=== PATIENT | female | born 1945 | race Caucasian/White ===

== ENCOUNTER 2025-08-23 12:22 | Emergency (ER) | payer MEDICARE, OTHER, SELFPAY ==
[2025-08-23 12:25] VITALS: BP 136/60
--- NOTE | 2025-08-23 13:07 | ED.GENMED ---
History of Present Illness
General
Chief Complaint: Abdominal Symptoms
Time Seen by Provider: 08/23/25 12:50
History of Present Illness
History of Present Illness:
79-year-old female presents to the emergency department for evaluation of generalized weakness and increasing abdominal pain as well as inability to tolerate p.o. She began having diarrhea just over 2 weeks ago and ultimately was diagnosed with C.
difficile by stool specimen yesterday. Was started on oral vancomycin and metronidazole by her primary care physician. She is having difficulty eating and drinking and reports voluminous nonbloody diarrhea. Reports general fatigue. No nausea or
vomiting. C. difficile was most likely provoked by course of antibiotics for an oral infection that was given within 1 month of the onset of diarrhea
Review of Systems
Review of Systems
Allergies reviewed?: Yes
All Other Systems: ROS reviewed and negative except as documented in HPI and ROS
Phy Exam
Physical Exam
Physical Exam:
GEN: Well appearing, NAD, WDWN
HEENT: Oral mucosa moist, no scleral icterus
Cardiac: Regular rate
Lung: No respiratory distress, no tachypnea
Abdomen: Mildly protuberant, severely tender to palpation particular the upper abdomen, no rigidity
MSK: No gross deformity or injuries
Skin: Good color, no pallor or jaundice, no rashes
Neuro: AO x3, moves all extremities freely
Psych: Calm, cooperative
Course
Orders/Labs/Results
Orders:
Orders
08/23/25 12:51
Lactated Ringers [Lr] 1,000 ml IV BOLUS
08/23/25 13:07
CT Abd/Pel (IV only)-DH only Urgent
Comment:
Reason For Exam: diffuse abd pain/ known CDIFF
08/23/25 13:14
Complete Blood Count/With Diff Urgent
08/23/25 13:15
Comprehensive Metabolic Panel Urgent
08/23/25 14:43
Lactated Ringers [Lr] 1,000 ml IV BOLUS
Potassium Chloride [KCl] 40 meq PO NOW STA
Abnormal Lab Results
08/23/25 08/23/25
13:14 13:15
WBC 17.7 H 10^3/uL
(4.8-10.8)
MCHC 32.8 L g/dL
(33.0-37.0)
Abs Immat Gran (auto) 0.1 H 10^3/uL
(0-0.05)
Absolute Neuts (auto) 15.8 H 10^3/uL
(1.4-6.5)
Absolute Lymphs (auto) 0.5 L 10^3/uL
(1.2-3.4)
Absolute Monos (auto) 1.1 H 10^3/uL
(0.1-0.6)
Immature Gran % 0.7 H %
(0-0.5)
Neutrophils % 89.1 H %
(42.2-75.2)
Lymphocytes % 3.1 L %
(20.5-51.1)
Sodium 131 L mmol/L
(135-145)
Potassium 3.2 L mmol/L
(3.5-5.1)
Chloride 92 L mmol/L
(98-107)
Carbon Dioxide 31 H mmol/L
(22-30)
Glucose 117 H mg/dl
(70-99)
Calcium 8.3 L mg/dl
(8.4-10.2)
Total Protein 5.7 L g/dl
(6.3-8.2)
Albumin 3.2 L g/dl
(3.5-5.0)
08/23/25 13:14
08/23/25 13:15
Vital Signs
Initial and Last Documented VS:
Initial Vital Signs
Temp Pulse Resp BP Pulse Ox
98.4 F 100 20 136/60 94
08/23/25 12:25 08/23/25 12:25 08/23/25 12:25 08/23/25 12:25 08/23/25 12:25
Last Documented Vital Signs
Temp Pulse Resp BP Pulse Ox
98.4 F 100 20 136/60 94
08/23/25 12:25 08/23/25 12:25 08/23/25 12:08/23/25 12:08/23/25 13:08
MDM/Problems Addressed
MDM/Problems Addressed:
Patient presenting with weakness and fatigue secondary to poor p.o. intake in the setting of known C. difficile. Her labs are not significantly abnormal with only mild hypokalemia. CT shows no evidence for toxic megacolon. She will be discharged
on continued oral therapy, recommend that there is no need for metronidazole while also on vancomycin, given IV fluid resuscitation in the ED and she is amenable for outpatient management. Educated on dietary recommendations
*Pulse Oximetry
SaO2: 94
Oxygen Mode of Delivery: Room air
Patient hypoxic: no
*Critical Care Note
Total Time (30-74mins, 75-104mins- exclusive of procedures): Not Applicable
ED Attending Note
-
Portions of this chart may have been created with voice recognition software.� Occasional wrong word or��sound alike� substitutions may have occurred due to the inherent limitations of voice recognition software.
Discharge Plan
Departure
Patient Disposition: Home (Routine Discharge)
Date of Disposition: 08/23/25
Time of Disposition: 16:33
Patient with high blood pressure during this ER visit?: No
Discharge Problem:
C. difficile colitis
Instructions: C. difficile infection - ED (DC)
Referrals:
Bill Rogers DO [Family Provider, Family Practice]
Interventions
Interventions:
*Risk Screen - Suicide Last Done: 08/23/25 12:25
*General Assessment Last Done: 08/23/25 12:25
*Neglect/Abuse Screening Last Done: 08/23/25 12:25
*ED- Fall Risk Assessment Last Done: 08/23/25 13:19
*ED COVID-19 Vaccine History Last Done: 08/23/25 13:19
*ED Influenza Vaccine History Last Done: 08/23/25 13:19
FL-Kevunz-Ihkhzecfiy Assessment Last Done: 08/23/25 13:19
Discharge Date and Time
Print Language: PAKISTANI
[2025-08-23] MEDS: LR 1000 IV ×2 (13:13→15:11)
[2025-08-23 13:19] VITALS: BMI 29.1
[2025-08-23 13:29] LABS: Hematocrit 38.1 % (37.0-47.0); Hemoglobin 12.5 g/dL (12.0-16.0); Mean Corp Hgb Conc. 32.8 g/dL (33.0-37.0); Mean Corpuscular Volume 84.5 fL (81.0-99.0); Nucleated Red Blood Cells % 0 %; Platelet Count 306 10^3/uL (130-400); Red Cell Dist. Width 14.3 % (11.5-14.5)
[2025-08-23 13:41] LABS: ALT (SGPT) 21 U/L (0-35); AST (SGOT) 27 U/L (14-36); Albumin 3.2 g/dl (3.5-5.0); Alkaline Phosphatase 94 U/L (38-126); Blood Urea Nitrogen 8 mg/dl (7-17); Calcium 8.3 mg/dl (8.4-10.2); Carbon Dioxide 31 mmol/L (22-30); Chloride 92 mmol/L (98-107); Estimated Creatinine Clearance 63 ml/min; Glucose 117 mg/dl (70-99); Potassium 3.2 mmol/L (3.5-5.1); Sodium 131 mmol/L (135-145); Total Protein 5.7 g/dl (6.3-8.2); eGFR > 60.00
[2025-08-23] MEDS: KCL 40 MEQ PO (14:48)
[2025-08-23 16:58] VITALS: BP 135/65
== END 2025-08-23 17:00 | disposition home or self-care (01) ==
LOC: EMR 12:22
PROVIDERS: Physician Assistant; EMERGENCY PHYSICIAN Emergency Medicine; FAMILY PHYSICIAN Family Medicine Adult Medicine
DX: A04.72 Enterocolitis due to Clostridium difficile, not specified as recurrent (principal); R53.1 Weakness
CPT/HCPCS: 99284; 96360; 96361; 74177; 80053; 85025; Q9967